=== PATIENT | male | born 1955 | race Caucasian/White ===

== ENCOUNTER → 2019-11-09 12:10 | Outpatient (CLI) | payer MEDICARE, BC, SELFPAY ==
[2019-11-10 10:21] LABS: PSA, Free 0.25 ng/mL; Prostate Specific Ag 1.2 ng/mL (0.0-4.0)
== END ==
PROVIDERS: Visit Provider Urology
DX: C61 Malignant neoplasm of prostate (principal)
CPT/HCPCS: 36415; 84153; 84154

== ENCOUNTER → 2020-05-16 13:47 | Outpatient (CLI) | payer MEDICARE, BC, SELFPAY ==
[2020-05-16 16:56] LABS: Prostate Specific Ag, Diagnost 1.33 ng/ml (0.0-4.0)
== END ==
PROVIDERS: Visit Provider Urology
DX: C61 Malignant neoplasm of prostate (principal)
CPT/HCPCS: 36415; 84153

== ENCOUNTER → 2021-05-29 13:28 | Outpatient (CLI) | payer MEDICARE, BC, SELFPAY ==
[2021-05-29 15:54] LABS: Prostate Specific Ag, Diagnost 1.51 ng/ml (0.0-4.0)
== END ==
PROVIDERS: Visit Provider Urology
DX: C61 Malignant neoplasm of prostate (principal)
CPT/HCPCS: 36415; 84153